=== PATIENT | female | born 1960 ===

== ENCOUNTER 2022-10-14 18:32 | Emergency (ER) | payer OTHER ==
[~2022-10-14] VITALS: Ht 152.4 cm; Wt 101.6 kg
[~2022-10-14 18:32] MED LIST: CARDIZEM CD120 MG PO; FUROSEMIDE10 MG/M1; KOMBIGLYZE XR1 EACH; METFORMIN HCL500 MG; NORVASC5 MG; PNEU16DI2; TRAMADOL HCL50 MG PO; ULTRACET PO; VASOTEC; VASOTEC20 M1; [UNRECOGNIZED DRUG - OTHER]
[2022-10-14] MEDS ORDERED: COZAAR50 MG PO (18:50)
[2022-10-14] MEDS ORDERED: JANUVIA100 MG PO (18:50)
[2022-10-14] MEDS ORDERED: STEGLATRO5 MG PO (18:51)
[2022-10-14] MEDS ORDERED: LANTUS SOL100 UNIT/1 SQ (18:51)
== END 2022-10-14 20:26 | disposition home or self-care (01) ==
LOC: ER 18:32
DX: M79.605 Pain in left leg (principal)